=== PATIENT | female | born 1985 | race Caucasian/White ===

== ENCOUNTER 2017-11-01 01:48 | Emergency (ER) | payer BC, SELFPAY ==
[2017-11-01 03:54] LABS: Acetaminophen Less than 6.0 mcg/mL (10.0-30.0); Alcohol 309 mg/dL (Less than 10); Salicylate Less than 8.0 mg/dL (15.0-30.0)
== END 2017-11-01 07:38 | disposition home or self-care (01) ==
LOC: ERS 01:48
DX: F10.129 Alcohol abuse with intoxication, unspecified (principal); Y90.8 Blood alcohol level of 240 mg/100 ml or more; F41.9 Anxiety disorder, unspecified
CPT/HCPCS: 36415; 80307; 96361; 96374

== ENCOUNTER 2023-03-23 21:15 | Emergency (ER) | payer BC ==
[2023-03-23] MEDS ORDERED: Fluorescein Opthalmic Strip ONE (23:53)
[2023-03-23] MEDS ORDERED: Proparacaine 0.5% Opth 15 ML BOT ONE (23:53)
== END 2023-03-24 00:35 | disposition home or self-care (01) ==
LOC: ERS 21:15
DX: H57.11 Ocular pain, right eye (principal)
CPT/HCPCS: 99283

== ENCOUNTER 2023-09-21 20:40 | Emergency (ER) | payer BC ==
[2023-09-21] MEDS ORDERED: Sulfameth/Trimethoprim DS 800-160mg TAB ONE (22:01)
== END 2023-09-21 22:12 | disposition home or self-care (01) ==
LOC: ERS 20:40
DX: L03.90 Cellulitis, unspecified (principal)
CPT/HCPCS: 99283